=== PATIENT | female | born 1980 | race African-American/Black ===

== ENCOUNTER 2018-06-14 23:50 | Emergency (ER) | payer SELFPAY ==
[~2018-06-14] VITALS: Ht 154.9 cm; Wt 96.8 kg
[2018-06-14 23:54] VITALS: Ht 154.9 cm; Wt 96.8 kg
[2018-06-14] MEDS ORDERED: HUMALOG 30100 UNITS/ (23:55)
[2018-06-14] MEDS ORDERED: GLUCOPHAGE500 MG (23:56)
[2018-06-14] MEDS ORDERED: LANTUS SOL100 UNIT/1 (23:56)
[2018-06-15 00:59] LABS: BASOPHILS 0.2 % (0-2); EOSINOPHILS 2.8 % (0-7); HEMOGLOBIN 11.6 g/dL (12-16); IMMATURE GRANULOCYTES 0.5 % (0-5); LYMPHOCYTES 33.2 % (15-50); MCH 21.8 pg (26.0-34.0); MCHC 32.2 g/dL (31.0-37.0); MCV 67.5 fL (80.0-100.0); MEAN PLATELET VOLUME 10.4 fL (7.4-10.4); MONOCYTES 6.5 % (2-11); NEUTROPHILS 56.8 % (40-80); PLATELET COUNT 294 10x3/uL (130-400); RBC 5.33 10x6/uL (4.00-5.40); RDW 14.6 % (11.5-14.5)
[2018-06-15 01:07] LABS: ALBUMIN 3.8 g/dL (3.4-5.0); ALKALINE PHOSPHATASE 163 U/L (46-116); ALT (SGPT) 21 U/L (10-68); BILIRUBIN - TOTAL 0.15 mg/dL (0.2-1.3); C-REACTIVE PROTEIN 3.8 mg/dL (0.0-0.9); CALC OSMOLALITY 287 mosm/kg (275-300); CARBON DIOXIDE 27.3 mmol/L (21.0-32.0); CHLORIDE - SERUM 99 mmol/L (98-107); CREATININE - SERUM 0.7 mg/dL (0.6-1.3); POTASSIUM - SERUM 3.9 mmol/L (3.5-5.1); PROTEIN - SERUM 7.9 g/dL (6.4-8.2); SODIUM 136 mmol/L (136-145); UREA NITROGEN 15 mg/dL (7-18); eGFR NON AFRICAN AMERICAN > 90 mL/min (90-120)
[2018-06-15 01:10] LABS: GLUCOSE 377 mg/dL (74-106)
[2018-06-15] MEDS ORDERED: DICLOFENAC SODI50 MG PO (02:00)
[2018-06-15 02:11] VITALS: BP 123/77
== END 2018-06-15 02:11 | disposition home or self-care (01) ==
LOC: D.ER 23:50
PROVIDERS: Family Medicine
DX: S96.812A Strain of other specified muscles and tendons at ankle and foot level, left foot, initial encounter (principal); X58.XXXA Exposure to other specified factors, initial encounter; Y93.9 Activity, unspecified; Y92.019 Unspecified place in single-family (private) house as the place of occurrence of the external cause; E11.9 Type 2 diabetes mellitus without complications

== ENCOUNTER → 2018-06-25 13:55 | Outpatient (CLI) | payer BC ==
[2018-06-14 23:54] VITALS: BMI 40.3
[~2018-06-25 13:55] MED LIST: DICLOFENAC SODI50 MG PO; GLUCOPHAGE500 MG; HUMALOG 30100 UNITS/; LANTUS SOL100 UNIT/1
== END | disposition home or self-care (01) ==
LOC: D.MRI 10:00
DX: M25.572 Pain in left ankle and joints of left foot (principal); M79.672 Pain in left foot

== ENCOUNTER 2019-05-27 07:40 | Day surgery (SDC) | payer OTHER ==
[2018-06-14 23:54] VITALS: Wt 93.9 kg
[2019-05-26 13:52] LABS: HEMATOCRIT 42.3 % (36.0-48.0); HEMOGLOBIN 14.1 g/dL (12-16); MCH 22.4 pg (26.0-34.0); MCHC 33.3 g/dL (31.0-37.0); MCV 67.1 fL (80.0-100.0); MEAN PLATELET VOLUME 10.7 fL (7.4-10.4); RBC 6.3 10x6/uL (4.00-5.40); RDW 14.1 % (11.5-14.5); WBC 9.4 10x3/uL (4.8-10.8)
[2019-05-26 14:25] LABS: ANION GAP 17.7 mmol/L (8-16); CALCIUM 9.4 mg/dL (8.5-10.1); CARBON DIOXIDE 26.4 mmol/L (21.0-32.0); CREATININE - SERUM 0.9 mg/dL (0.6-1.3); POTASSIUM - SERUM 4.1 mmol/L (3.5-5.1)
[~2019-05-27 07:40] MED LIST changes: +GLUCOPHAGE1000 MG PO; +NOVOLOG100 UNIT/1 SC
--- NOTE | 2019-05-27 09:38 | NUR ---
0755-PRE-OP BLOOD SUGARS REPORTED TO DR. MARCELINO-PROCEDURE CANCELLED. INSTRUCTIONS TO FOLLOW UP WITH ADMINISTRATION ASSISTANT.
--- NOTE | 2019-05-27 09:39 | NUR ---
08-SPOKE WITH BONNIE @ DR. SOTOMAYOR'S OFFICE ABOUT BLOOD SUGAR REPORTS. STATES SHE WILL TEXT NURSE PRACTITIONER, LUISA JARAMILLO AND SHE WILL CALL ME WITH INSTRUCTIONS. 09-NO CALL BACK, UNABLE TO REACH STAFF THRU OFFICE. PATIENT STATES SHE WANTS TO LEAVE. DISCHARGE INSTRUCTIONS GIVEN TO PATIENT WITH LAB REPORTS, PATIENT TO REPORT TO DR. SOTOMAYOR'S OFFICE THIS AM FOR FURTHER INSTRUCTIONS ON DIABETES MANAGEMENT. PATIENT STATES UNDERSTANDING AND ALL QUESTIONS ANSWERED. PT. LEFT ON OWN ACCORD.
== END 2019-05-27 09:30 | disposition home or self-care (01) ==
LOC: D.OPS 07:40 → D.PAN 10:00 → D.OPS 13:00
PROVIDERS: Anesthesiology; ATTEND Podiatrist
DX: M76.822 Posterior tibial tendinitis, left leg (principal); Z53.9 Procedure and treatment not carried out, unspecified reason